=== PATIENT | female | born 2000 | race Caucasian/White ===

== ENCOUNTER → 2022-04-15 | Outpatient (CLI) | payer OTHER ==
[2022-04-15 11:51] LABS: BASO # 0.08 K/mm3 (0.02-0.10); EOS # 0.45 K/mm3 (0.04-0.40); EOS % 5.2 % (0.1-4.0); HEMATOCRIT 40.2 % (35.0-45.0); HEMOGLOBIN 14.4 g/dL (12.0-15.0); LYMPH# 2.36 K/mm3 (1.20-3.40); MEAN CELL VOLUME 87 fl (78-95); MEAN CORPUSCULAR HEMOGLOBIN 31 pg (26-32); MEAN CORPUSCULAR HGB CONC 36 g/dL (33-37); MEAN PLATELET VOLUME 9.1 fl (7.4-10.4); MONO # 0.59 K/mm3 (0.10-0.60); NEU # 5.15 K/mm3 (1.40-6.50); PLATELET COUNT 385 K/mm3 (130-400); RED CELL DISTRIBUTION WIDTH 11.6 % (11.5-14.5); WHITE BLOOD COUNT 8.6 K/mm3 (4.8-10.8)
[2022-04-15 12:02] LABS: POTASSIUM 3.5 mmol/L (3.5-5.1)
[2022-04-15 12:03] LABS: ALBUMIN 4.3 g/dL (3.5-5.0)
[2022-04-15 12:04] LABS: CALCIUM 9.6 mg/dL (8.3-10.5)
[2022-04-15 12:05] LABS: TOTAL PROTEIN 7.3 g/dL (6.4-8.3)
[2022-04-15 12:07] LABS: TOTAL BILIRUBIN 0.7 mg/dL (0.2-1.2)
== END ==
LOC: LAB 11:16
PROVIDERS: Physician Assistant
DX: Z00.00 Encounter for general adult medical examination without abnormal findings (principal); Z13.220 Encounter for screening for lipoid disorders; G43.909 Migraine, unspecified, not intractable, without status migrainosus; J30.2 Other seasonal allergic rhinitis

== ENCOUNTER → 2024-04-24 | Outpatient (CLI) | payer OTHER ==
[2024-04-24 17:12] LABS: CLUE CELLS PRESENT (Not Observd)
== END ==
LOC: LAB 16:21
PROVIDERS: Nurse Practitioner Family
DX: R30.0 Dysuria (principal); N89.8 Other specified noninflammatory disorders of vagina
CPT/HCPCS: Q0111

== ENCOUNTER → 2024-07-06 | Outpatient (CLI) | payer OTHER ==
[2024-07-06 10:19] LABS: CLUE CELLS PRESENT (Not Observd)
== END ==
LOC: LAB 09:45
PROVIDERS: Nurse Practitioner Family
DX: Z20.2 Contact with and (suspected) exposure to infections with a predominantly sexual mode of transmission (principal)
CPT/HCPCS: Q0111

== ENCOUNTER → 2024-10-03 | Outpatient (CLI) | payer OTHER ==
[2024-10-03 18:32] LABS: CLUE CELLS NOT OBSERVED (Not Observd)
== END ==
LOC: LAB 18:13
PROVIDERS: Nurse Practitioner Family
DX: Z20.2 Contact with and (suspected) exposure to infections with a predominantly sexual mode of transmission (principal)
CPT/HCPCS: Q0111